=== PATIENT | female | born 1950 | race Caucasian/White ===

== ENCOUNTER 2018-08-20 11:09 | Outpatient (CLI) | payer MEDICARE, BC ==
--- NOTE | 2018-08-20 12:21 | MMO ---
BILATERAL SCREENING MAMMOGRAM: Date: 08/20/18 HISTORY: 67-year-old female. Routine screening mammography. COMPARISON: 06/21/15, 06/29/16, 08/15/17. TECHNIQUE: CC and MLO views of both breasts are submitted for interpretation. This patient's mammogram was reviewed with the assistance of computer-aided detection. FINDINGS: The breasts are predominantly fatty replaced. Bilaterally, no suspicious dominant mass, architectural distortion, or suspicious calcifications. Bilateral benign-appearing calcifications are identified. IMPRESSION: BIRADS 2: Benign Finding(s) RECOMMENDATION: Annual mammogram. POS: [facility]
== END 2018-08-20 11:10 | disposition home or self-care (01) ==
LOC: SCSMAMMO 11:09
PROVIDERS: ATTEND Family Medicine
DX: Z12.31 Encounter for screening mammogram for malignant neoplasm of breast (principal)
CPT/HCPCS: 77067

== ENCOUNTER 2020-01-15 08:35 | Outpatient (CLI) | payer MEDICARE, BC ==
--- NOTE | 2020-01-15 11:21 | MRI ---
EXAM: Right shoulder MRI post arthrogram contrast: HISTORY: Rotator cuff arthropathy right shoulder, right shoulder pain COMPARISON: None FINDINGS: Multiplanar, multisequence MRI examination of the shoulder is performed. A C joint:Arthrosis with minimal fluid and fat stranding in the subacromial and subdeltoid bursa. Supraspinatus tendon: Linear full-thickness tear of the supraspinatus tendon and conjoined tendon wit h contrast extending into the subacromial bursa, but without significant retraction. Infraspinatus tendon: The supraspinatus tendon tear extends into the conjoined tendon and into the in fraspinatus with delamination and a sentinel cyst. Biceps tendon: Intact. Subscapularis tendon: Probable undersurface and minimally delaminating tear. Rotator cuff muscles: Within normal limits of signal and volume. Glenoid labrum: Evidence for SLAP tear with some anterior and posterior extension. No evidence for acute osteochondral defect or significant abnormal marrow signal. IMPRESSION: Full-thickness rotator cuff tear with some associated delamination and sentinel cyst in the infraspin atus. Evidence for SLAP tear with anterior and posterior extension. Other findings as above.
[2020-01-15] MEDS ORDERED: Magnevist 469MG/ML 20 ML VIAL ONE (14:48)
--- NOTE | 2020-01-15 14:52 | RAD ---
PROCEDURE: XR Shoulder Rt Arthrogram PROVIDED CLINICAL HISTORY: Right shoulder pain. Rotator cuff arthropathy of right shoulder. COMPARISON: None TECHNIQUE: After informed consent was obtained, the patient was placed on the fluoroscopy table in the supine po sition. The right shoulder was placed in external rotation. An area overlying the upper one third of the right glenohumeral joint was marked, and the area was meticulously prepped and draped in usual sterile fashion. The skin and subcutaneous tissues were infiltrated with buffered 1% lidocaine for local anesthesia. A 22-gauge spinal needle was advanced into the right glenohumeral joint. The inner stylette was remov ed, and a small amount of contrast was injected demonstrating free flow of contrast away from the needle. As result, 12 mL of a mixture initially consisting of MultiHance, Isovue 300, 1% lidocaine, a nd a small amount of epinephrine was instilled in to the right glenohumeral joint. The needle was removed, and hemostasis was achieved with direct pressure. Dry sterile dressing was placed. The patie nt tolerated the procedure well and without immediate complication. Patient was transported to MRI for further imaging. Fluoroscopy: Dose-29.7 microGy meter squared Time 0.7 minutes IMPRESSION: Technically successful right shoulder arthrogram. Please see MRI right shoulder for further details.
== END 2020-01-15 08:36 | disposition home or self-care (01) ==
LOC: RAD 08:35
PROVIDERS: ATTEND Family Medicine
DX: M12.811 Other specific arthropathies, not elsewhere classified, right shoulder (principal); M75.121 Complete rotator cuff tear or rupture of right shoulder, not specified as traumatic; S43.431A Superior glenoid labrum lesion of right shoulder, initial encounter; M25.811 Other specified joint disorders, right shoulder
CPT/HCPCS: 23350; A9579

== ENCOUNTER 2021-04-12 13:14 | Outpatient (CLI) | payer MEDICARE, BC | END 2021-04-12 13:15 | disposition home or self-care (01) | LOC: BICMAMMO 13:14 | PROVIDERS: ATTEND Family Medicine | DX: M85.851 Other specified disorders of bone density and structure, right thigh (principal); M85.852 Other specified disorders of bone density and structure, left thigh; M81.0 Age-related osteoporosis without current pathological fracture | CPT/HCPCS: 77080 ==

== ENCOUNTER 2023-09-20 13:36 | Outpatient (CLI) | payer MEDICARE, BC | END 2023-09-20 13:37 | disposition home or self-care (01) | LOC: BICMAMMO 13:36 | PROVIDERS: ATTEND Family Medicine | DX: Z13.820 Encounter for screening for osteoporosis (principal); M85.89 Other specified disorders of bone density and structure, multiple sites | CPT/HCPCS: 77080 ==

== ENCOUNTER 2024-08-13 09:56 | Outpatient (CLI) | payer MEDICARE, BC | END 2024-08-13 09:57 | disposition home or self-care (01) | LOC: BICMAMMO 09:56 | PROVIDERS: ATTEND Family Medicine | DX: Z12.31 Encounter for screening mammogram for malignant neoplasm of breast (principal); Z80.3 Family history of malignant neoplasm of breast | CPT/HCPCS: 77063; 77067 ==

== ENCOUNTER 2025-08-14 13:44 | Outpatient (CLI) | payer MEDICARE, BC | END 2025-08-14 13:45 | disposition home or self-care (01) | LOC: BICMAMMO 13:44 | PROVIDERS: ATTEND Family Medicine | DX: Z12.31 Encounter for screening mammogram for malignant neoplasm of breast (principal); Z80.3 Family history of malignant neoplasm of breast | CPT/HCPCS: 77063; 77067 ==